=== PATIENT | male | born 1995 | race Caucasian/White ===

== ENCOUNTER 2020-09-28 09:41 | Emergency (ER) | payer BC ==
[2020-09-28] MEDS ORDERED: Lidocaine 1% w/Epinephrine 1:100K 20 ML VIAL ONE (10:27)
[2020-09-28] MEDS ORDERED: Bacitracin 1 PK ONE (11:33)
== END 2020-09-28 11:28 | disposition home or self-care (01) ==
LOC: ERS 09:41
DX: S61.012A Laceration without foreign body of left thumb without damage to nail, initial encounter (principal); X58.XXXA Exposure to other specified factors, initial encounter
CPT/HCPCS: 12001